=== PATIENT | female | born 1995 | race Two or more races ===

== ENCOUNTER 2022-06-09 15:15 | Emergency (ER) | payer OTHER ==
[~2022-06-09] VITALS: Ht 165.1 cm; Wt 98.9 kg
[2022-06-09] MEDS ORDERED: PRENATALES (16:33)
== END 2022-06-09 21:03 | disposition home or self-care (01) ==
LOC: ER 15:15
DX: O98.511 Other viral diseases complicating pregnancy, first trimester (principal); Z3A.13 13 weeks gestation of pregnancy; Z20.822 Contact with and (suspected) exposure to COVID-19

== ENCOUNTER 2022-08-01 16:38 | Outpatient (CLI) | payer OTHER ==
[~2022-08-01 16:38] MED LIST: PRENATALES
== END 2022-08-02 17:17 | disposition home or self-care (01) ==
LOC: OBS/DEL 16:38
PROVIDERS: ATTEND Obstetrics & Gynecology
DX: O23.42 Unspecified infection of urinary tract in pregnancy, second trimester (principal); N39.0 Urinary tract infection, site not specified; Z3A.20 20 weeks gestation of pregnancy; Z20.822 Contact with and (suspected) exposure to COVID-19

== ENCOUNTER 2022-10-18 14:08 | Outpatient (CLI) | payer OTHER ==
[2022-10-18] MEDS ORDERED: BUTALBITAL-ACE1 EAC2 PO (19:21)
== END 2022-10-20 14:00 | disposition home or self-care (01) ==
LOC: OBS/DEL 14:08
PROVIDERS: ATTEND Obstetrics & Gynecology
DX: O26.893 Other specified pregnancy related conditions, third trimester (principal); Z3A.32 32 weeks gestation of pregnancy; G43.909 Migraine, unspecified, not intractable, without status migrainosus; Z91.018 Allergy to other foods

== ENCOUNTER 2022-12-08 15:35 | Outpatient (CLI) | payer OTHER ==
[~2022-12-08 15:35] MED LIST changes: +BUTALBITAL-ACE1 EAC2 PO
== END 2022-12-09 09:45 | disposition home or self-care (01) ==
LOC: OBS/DEL 15:35
PROVIDERS: ATTEND Obstetrics & Gynecology
DX: O26.893 Other specified pregnancy related conditions, third trimester (principal); R51.9 Headache, unspecified; R53.1 Weakness; R42 Dizziness and giddiness; Z3A.39 39 weeks gestation of pregnancy

== ENCOUNTER 2022-12-10 09:41 | Inpatient (IN) | payer OTHER ==
[~2022-12-10] VITALS: Ht 165.1 cm; Wt 110.7 kg
== END 2022-12-12 13:12 | disposition home or self-care (01) | DRG 807 ==
LOC: OB/GYN 09:41 → LDR 09:41 → OB/GYN 19:47
PROVIDERS: ADMIT Obstetrics & Gynecology; ATTEND Obstetrics & Gynecology
PROC: 10E0XZZ Delivery of Products of Conception, External Approach (ICD-10-PCS; principal; 2022-12-10)
PROC: 0KQM0ZZ Repair Perineum Muscle, Open Approach (ICD-10-PCS; 2022-12-10)
PROC: 4A1HXCZ Monitoring of Products of Conception, Cardiac Rate, External Approach (ICD-10-PCS; 2022-12-10)
DX: O70.1 Second degree perineal laceration during delivery (principal); Z37.0 Single live birth

== ENCOUNTER → 2024-05-31 | Outpatient (CLI) | payer OTHER | END | disposition home or self-care (01) | LOC: PRENATAL 13:56 | PROVIDERS: ATTEND Obstetrics & Gynecology Maternal & Fetal Medicine | DX: O36.80X0 Pregnancy with inconclusive fetal viability, not applicable or unspecified (principal); Z36.82 Encounter for antenatal screening for nuchal translucency; O99.211 Obesity complicating pregnancy, first trimester; Z3A.14 14 weeks gestation of pregnancy ==

== ENCOUNTER → 2024-07-21 | Outpatient (CLI) | payer OTHER | END | disposition home or self-care (01) | LOC: PRENATAL 07-18 13:51 | PROVIDERS: ATTEND Obstetrics & Gynecology Maternal & Fetal Medicine | DX: O35.9XX0 Maternal care for (suspected) fetal abnormality and damage, unspecified, not applicable or unspecified (principal); O35.3XX0 Maternal care for (suspected) damage to fetus from viral disease in mother, not applicable or unspecified; O44.02 Complete placenta previa NOS or without hemorrhage, second trimester; O99.212 Obesity complicating pregnancy, second trimester; Z3A.21 21 weeks gestation of pregnancy ==

== ENCOUNTER 2024-08-08 19:47 | Outpatient (CLI) | payer OTHER ==
[2024-08-08 20:09] VITALS: BP 133/69
[2024-08-08] MEDS ORDERED: RINGERS SOLUTION,LACTATED 1,000 ML IV SCH (20:30)
[2024-08-08] MEDS ORDERED: PRENATAL TABLE1 EAC4 (20:36)
[2024-08-08 21:55] LABS: PH,URINE 5.5 (5.0-8.0); URINE APPEARANCE Clear; URINE BILIRRUBIN Negative (NEGATIVE); URINE BLOOD Negative; URINE COLOR Yellow; URINE GLUCOSE Negative (NEGATIVE); URINE KETONE Negative (NEGATIVE); URINE LEUKOCYTE Negative; URINE NITRATE Negative; URINE PROTEIN Negative (NEGATIVE); URINE UROBILINOGEN 0.2 E.U./dl
[2024-08-08 21:57] LABS: URINE BACTERIA 202.8 uL (0.0-1933); URINE EPITHELIAL CELLS 20.2 uL (0.0-38.8); URINE RBC 2.4 uL (0.0-20.8); URINE WBC 4.3 uL (0.0-23.2)
[2024-08-08 21:58] LABS: URINE CAST 0.45 uL (0.0-1.40)
[2024-08-08 22:00] LABS: HEMOGLOBIN 12.4 g/dL (12.0-15.00); MEAN CELL VOLUME 80.7 fL (80.00-100.00); MEAN CORPUSCULAR HEMOGLOBIN 27.8 pg (27.00-32.0); MEAN CORPUSCULAR HGB CONC 34.5 g/dl (32.0-36.0); PLATELET COUNT 183 K/uL (150-450); RED BLOOD COUNT 4.46 M/uL (4.00-6.00); RED CELL DISTRIBUTION WIDTH 15.5 % (11.5-14.5)
[2024-08-08 23:55] VITALS: BP 103/58
[2024-08-09 04:00] VITALS: BP 111/61
[2024-08-09 06:30] VITALS: BP 95/55; O2SAT 97
[2024-08-09 10:55] VITALS: BP 118/81
== END 2024-08-09 10:56 | disposition home or self-care (01) ==
LOC: OBS/DEL 19:47
PROVIDERS: ATTEND Obstetrics & Gynecology
DX: O26.892 Other specified pregnancy related conditions, second trimester (principal); T14.90XA Injury, unspecified, initial encounter; V49.88XA Car occupant (driver) (passenger) injured in other specified transport accidents, initial encounter; Z3A.24 24 weeks gestation of pregnancy

== ENCOUNTER 2024-10-03 13:30 | Outpatient (CLI) | payer OTHER ==
[~2024-10-03 13:30] MED LIST changes: +PRENATAL TABLE1 EAC4
== END 2024-10-03 13:31 | disposition home or self-care (01) ==
LOC: PRENATAL 13:30
PROVIDERS: ATTEND Obstetrics & Gynecology Maternal & Fetal Medicine
DX: O26.849 Uterine size-date discrepancy, unspecified trimester (principal); O36.8199 Decreased fetal movements, unspecified trimester, other fetus; O99.210 Obesity complicating pregnancy, unspecified trimester; Z3A.33 33 weeks gestation of pregnancy

== ENCOUNTER 2024-11-20 19:16 | Inpatient (IN) | payer OTHER ==
[~2024-11-20] VITALS: Ht 165.1 cm; Wt 106.1 kg
[2024-11-20 18:49] VITALS: BP 137/80
[2024-11-20] MEDS ORDERED: AMPICILLIN SODIUM 2,000 MG VIAL IV ONE (19:30)
[2024-11-20] MEDS ORDERED: RINGERS SOLUTION,LACTATED 1,000 ML IV SCH (19:30)
[2024-11-20 19:55] LABS: HEMATOCRIT 39.9 % (36.0-45.00); HEMOGLOBIN 13.2 g/dL (12.0-15.00); MEAN CORPUSCULAR HEMOGLOBIN 27.2 pg (27.00-32.0); MEAN CORPUSCULAR HGB CONC 33.2 g/dl (32.0-36.0); PLATELET COUNT 138 K/uL (150-450); RED BLOOD COUNT 4.86 M/uL (4.00-6.00); RED CELL DISTRIBUTION WIDTH 15.6 % (11.5-14.5)
[2024-11-20 19:59] LABS: URINE APPEARANCE Clear; URINE BILIRRUBIN Negative (NEGATIVE); URINE BLOOD Negative; URINE COLOR Yellow; URINE GLUCOSE Negative (NEGATIVE); URINE KETONE Negative (NEGATIVE); URINE LEUKOCYTE Trace; URINE NITRATE Negative; URINE PROTEIN Negative (NEGATIVE); URINE UROBILINOGEN 0.2 E.U./dl
[2024-11-20 20:03] LABS: URINE BACTERIA 541.9 uL (0.0-1933); URINE EPITHELIAL CELLS 40.4 uL (0.0-38.8); URINE WBC 5.3 uL (0.0-23.2)
[2024-11-20 20:11] LABS: URINE CAST 0.14 uL (0.0-1.40); URINE RBC 0.7 uL (0.0-20.8)
[2024-11-20 20:17] LABS: INR 0.98; PARTIAL THROMBOPLASTIN TIME 25.6 SECONDS (22.0-34.0); PROTHROMBIN TIME 10.7 SECONDS (9.0-11.5)
[2024-11-20 21:31] LABS: BILIRUBIN TOTAL 0.46 mg/dL (0.3-1.2); CALCIUM 8.9 mg/dL (8.5-10.1); CREATININE SERUM 0.64 mg/dL (0.55-1.02); GFR 109.71; GLOBULINA 3.7 G/DL (2.4-3.5); POTASSIUM 4.5 mEq/L (3.5-5.1); TOTAL PROTEIN 6.7 gm/dL (6.4-8.2)
[2024-11-20 23:12] VITALS: BP 140/76
[2024-11-21] VITALS (9 sets, daily range): BP systolic 113–157; BP diastolic 62–88
[2024-11-21] MEDS ORDERED: AMPICILLIN SODIUM 1,000 MG VIAL IV SCH
[2024-11-21] MEDS ORDERED: IBUprofen 400 MG TABLET PO PRN (05:45)
[2024-11-21] MEDS ORDERED: LIDOCAINE HCL 1% 10ML VIAL IJ ONE (06:00)
[2024-11-21] MEDS ORDERED: OXYTOCIN 1,000 ML IV SCH (06:00)
[2024-11-21] MEDS ORDERED: ERYTHROMYCIN BASE OPHT 1GM EACH TUBE OP ONE (06:00)
[2024-11-21] MEDS ORDERED: OXYTOCIN 10 UNITS/ML VIAL IM STA (06:00)
[2024-11-21] MEDS ORDERED: CHLORHEXIDINE GLUCONATE 120 ML BOTTLE TP SCH (06:00)
[2024-11-21 08:57] LABS: HEMOGLOBIN 12.6 g/dL (12.0-15.00); MEAN CELL VOLUME 82.2 fL (80.00-100.00); MEAN CORPUSCULAR HEMOGLOBIN 27.3 pg (27.00-32.0); MEAN CORPUSCULAR HGB CONC 33.2 g/dl (32.0-36.0); RED BLOOD COUNT 4.62 M/uL (4.00-6.00); RED CELL DISTRIBUTION WIDTH 15.6 % (11.5-14.5)
[2024-11-21 08:58] LABS: PLATELET COUNT 126 K/uL (150-450)
[2024-11-22 15:51] VITALS: BP 128/86
[2024-11-23 01:49] VITALS: BP 118/82
[2024-11-23 08:53] VITALS: BP 123/71
== END 2024-11-23 15:27 | disposition home or self-care (01) | DRG 807 ==
LOC: LDR 19:16 → OB/GYN 11-21 07:42
PROVIDERS: ADMIT Obstetrics & Gynecology; ATTEND Obstetrics & Gynecology
PROC: 4A1HXCZ Monitoring of Products of Conception, Cardiac Rate, External Approach (ICD-10-PCS; 2024-11-20)
PROC: 10E0XZZ Delivery of Products of Conception, External Approach (ICD-10-PCS; principal; 2024-11-21)
PROC: 0HQ9XZZ Repair Perineum Skin, External Approach (ICD-10-PCS; 2024-11-21)
DX: O70.0 First degree perineal laceration during delivery (principal); Z37.0 Single live birth; Z3A.39 39 weeks gestation of pregnancy; Z20.822 Contact with and (suspected) exposure to COVID-19